=== PATIENT | female | born 1950 | race Caucasian/White ===

== ENCOUNTER → 2022-09-25 | Outpatient (CLI) | payer MEDICARE ==
[~2022-09-25] MED LIST: IOHEXOL 240 MGI/ML 50 ML (OMNIPAQUE) VIAL IV ONE
--- NOTE | 2022-09-25 12:44 | Diagnostic Imaging Report ---
INDICATION: Malfunctioning chest wall port. The patient was brought to the fluoroscopy suite and placed on the table in the supine position. The left chest wall port was accessed by radiology nursing. 20 mL of Omnipaque 200 contrast was injected through the port under fluoroscopic observation. A total of 25 seconds of fluoroscopic time was utilized. Preliminary radiograph demonstrates a left chest wall port with tip overlying the SVC. No fracture, kinking or interruption of the port tubing is seen. There is normal flow of contrast through the port and out the tip into the SVC and right atrium. No extravasation of contrast is seen. No definite fibrous sheath is detected. IMPRESSION: Normal functioning left chest wall port with free flow of contrast beyond the catheter tip. Dictated by: Dictated on workstation # [id number]
== END ==
LOC: RAD 10:15
PROVIDERS: ATTEND Nurse Practitioner Adult Health
DX: T82.898A Other specified complication of vascular prosthetic devices, implants and grafts, initial encounter (principal)
CPT/HCPCS: 36598